=== PATIENT | female | born 2000 | race Caucasian/White ===

== ENCOUNTER 2022-01-31 13:55 | Emergency (ER) | payer MEDICAID ==
[~2022-01-31] VITALS: Ht 167.6 cm; Wt 77.0 kg
[2022-01-31] MEDS ORDERED: CYCL10TA21 MT (17:14)
[2022-01-31] MEDS ORDERED: IBUP-2029 MT (17:14)
[2022-01-31 17:23] VITALS: BP 128/64
== END 2022-01-31 17:24 | disposition home or self-care (01) ==
LOC: ER 13:55
DX: M25.531 Pain in right wrist (principal); M54.2 Cervicalgia; M25.511 Pain in right shoulder; J45.909 Unspecified asthma, uncomplicated; V49.9XXA Car occupant (driver) (passenger) injured in unspecified traffic accident, initial encounter; Y93.89 Activity, other specified; Y92.89 Other specified places as the place of occurrence of the external cause; Y99.8 Other external cause status
CPT/HCPCS: 73030; 73100; 99284